=== PATIENT | male | born 1995 | race Caucasian/White ===

== ENCOUNTER 2025-02-21 18:37 | Emergency (ER) | payer OTHER, SELFPAY ==
[2025-02-21 18:48] VITALS: BP 154/94; PULSE 65; RESP 16; TEMP 36.6; O2SAT 100
--- NOTE | 2025-02-21 19:49 | ED_ITS ---
HPI - Ear Problem General Chief complaint: Ear Stated complaint: Ear Pressure Source: patient Mode of arrival: ambulatory Limitations: no limitations History of Present Illness HPI Narrative: Patient presents for evaluation of muffled hearing and tinnitus in the left ear for the last month. He denies any drainage from the ear or otalgia. No fever, chills, sore throat. He believes he has a cerumen impaction. His mother instructed him not to clean his ears with q-tips. He believes He may have impacted the cerumen with a Q-tip. Related Data Allergies Allergy/AdvReac Type Severity Reaction Status Date / Time No Known Allergies Allergy Verified 02/21/25 19:06 Review of Systems Review of Systems: CONSTITUTIONAL: Denies fever, chills, or sweats. EYES: Denies visual changes, redness, or discharge. ENT: reports muffled hearing on the left with associated tinnitus. Denies drainage from the ear or otalgia. Denies rhinorrhea, congestion, sore throat CARDIOVASCULAR: Denies chest pain, palpitations, or edema. RESPIRATORY: Denies cough or dyspnea. GASTROINTESTINAL: Denies abdominal pain, nausea, vomiting, or diarrhea. GENITOURINARY: Denies dysuria or hematuria. SKIN: Denies rash or itching. MUSCULOSKELETAL: Denies back pain, joint pain, or myalgia. NEUROLOGIC: Denies headache, numbness, dizziness, or weakness. PSYCHIATRIC: Denies anxiety or depression. PMFSH Past Medical History Medical History ADHD Asthma Surgical History Surgical History History of tympanostomy tube placement Family History Family History Mother Family history non-contributory Social History Social History Substance use: never Living arrangements: with family Gender identity (if verbalized by the patient): Male Exam Narrative: GENERAL: Well-appearing, well-nourished, and in no acute distress. HEAD: Normocephalic, atraumatic. EYES: PERRLA and EOMI. ENT: Nares clear, no rhinorrhea or epistaxis. Mucous membranes moist. Oropharynx without tonsillar hypertrophy exudate or other lesions. unable to visualize either tympanic membrane secondary to cerumen NECK: Supple. No adenopathy or masses. No carotid bruits or JVD CHEST: Clear to auscultation. No respiratory distress. No wheezes rales or rhonchi HEART: Regular rate and rhythm. No murmur heard. Normal peripheral pulses. ABDOMEN: Soft, nontender, nondistended, normal active bowel sounds. EXTREMITIES: Normal range of motion. No edema. SKIN: Warm, dry, no rash. NEURO: No focal deficits. Alert and oriented x3. PSYCH: Normal mood and affect. Course Course Emergency Course: this is a 29-year-old male who presented for evaluation of muffled hearing on the left side. He had evidence of a bilateral cerumen impaction. Ears were irrigated with hydrogen peroxide and water. cerumen was removed. Tympanic membranes were visible and intact. There was erythema in both ear canals. Will discharge with ofloxacin. Follow up with primary provider. Go to the ER for worsening symptoms. Patient in agreement with plan of care. Level of Care: Express Care Visit Vital Signs Vital signs: Vital Signs Temperature 36.6 C 02/21/25 18:48 Pulse Rate 65 02/21/25 18:48 Respiratory Rate 16 02/21/25 18:48 Blood Pressure 154/94 H 02/21/25 18:48 Pulse Oximetry 100 02/21/25 18:48 Temperature 36.6 C 02/21/25 18:48 Pulse Rate 65 02/21/25 18:48 Respiratory Rate 16 02/21/25 18:48 Blood Pressure 154/94 H 02/21/25 18:48 Pulse Oximetry 100 02/21/25 18:48 MDM Differential Diagnosis Differential Diagnosis: Otitis media versus otitis externa versus cerumen impaction versus retained foreign body in the ear versus other Discharge Plan Discharge Clinical Impression: Bilateral impacted cerumen, Bilateral otitis externa Patient Disposition: Home Condition: Stable Instructions: Antibiotic Form, Earache (ED) Patient Language: Yoruba Prescriptions: New ofloxacin 0.3 % drops 10 drp EACH EAR BID 14 Days Qty: 10 0RF Follow-up/Referrals: Abhilash Yoder MD [Physician, Family Practice] Time of Disposition: 19:23
== END 2025-02-21 19:25 | disposition home or self-care (01) ==
PROVIDERS: Emergency Provider Nurse Practitioner
DX: H61.23 Impacted cerumen, bilateral (principal); H60.93 Unspecified otitis externa, bilateral
CPT/HCPCS: 69209; 99213; A9270; G0463